=== PATIENT | male | born 1995 | race Caucasian/White ===

== ENCOUNTER 2020-07-11 01:15 | Emergency (ER) | payer SELFPAY ==
[~2020-07-11] VITALS: Ht 170.2 cm; Wt 72.6 kg
[2020-07-11 01:25] VITALS: BP_SYST 127
[2020-07-11 02:30] VITALS: BP_SYST 127
== END 2020-07-11 02:30 | disposition home or self-care (01) ==
LOC: SED 01:15
DX: S83.8X2A Sprain of other specified parts of left knee, initial encounter (principal); W18.39XA Other fall on same level, initial encounter; Y93.89 Activity, other specified; Y92.89 Other specified places as the place of occurrence of the external cause; Y99.8 Other external cause status
CPT/HCPCS: 73560-TC; 99283

== ENCOUNTER 2021-07-24 21:51 | Emergency (ER) | payer MEDICAID ==
[~2021-07-24] VITALS: Ht 170.2 cm; Wt 72.6 kg
[2021-07-24 22:07] VITALS: BP_SYST 156
--- NOTE | 2021-07-25 00:15 | NUR ---
Patient called x 3, no answer. Patient left without being seen. No further treatment provided. ER MD aware.
== END 2021-07-25 00:15 | disposition left against medical advice (07) ==
LOC: SED 21:51
DX: M79.674 Pain in right toe(s) (principal); Z53.21 Procedure and treatment not carried out due to patient leaving prior to being seen by health care provider